=== PATIENT | male | born 1935 | race Caucasian/White ===

== ENCOUNTER → 2017-04-19 | Day surgery (SDC) | payer MEDICARE ==
[~2017-04-19] VITALS: Ht 185.4 cm; Wt 122.5 kg
[~2017-04-19] MED LIST: DILT240C45 PO; FINA5TAB9 PO; FURO-128 PO; LISI-567 PO; METF1000 PO; POTA10TA14 PO; PRAV10TA2 PO; Sodium Chloride LOK Flush 10 mL Syringe IV PRN; TAMS0.4C29 PO; WARF5TAB7 PO; fentaNYL-PF 50 mCg/mL 2 mL Inj IVPUSH PRN
[2017-04-19 11:32] VITALS: BP 137/82; PULSE 71; RESP 16; O2SAT 93
[2017-04-19] MEDS: 0.9% Sodium Chloride 1,000 ML IV PRN ×2 (11:46→12:18)
[2017-04-19 12:49] VITALS: BP 111/68; PULSE 70; RESP 14; O2SAT 92
[2017-04-19 13:02] VITALS: BP 118/67; PULSE 54; RESP 15; O2SAT 94
--- NOTE | 2017-04-19 13:36 | ENDO ---
[address] [address] ENDOSCOPY PROCEDURE PATIENT: BRANDEN DUDLEY : 1935 MR#: [id number] ADMIT: 04/19/2017 JOB ID: [id number] DATE OF SERVICE: 04/19/2017 PRIMARY PROVIDER: Elton Kearney MD. PROCEDURE: Colonoscopy with cold forceps polypectomies. INDICATIONS: An 81-year-old male with a personal history of colon polyps, returning for surveillance. EQUIPMENT: [employer]. SEDATION: 1. Versed 2 mg. 2. Fentanyl 50 mcg. COMPLICATIONS: None identified. BOWEL PREPARATION: Fair. PROCEDURE INFORMATION: After the risks and benefits were explained, written and verbal informed consent was obtained. The patient was brought into the endoscopy suite and placed into the left lateral decubitus position. Sedation was achieved using the above-stated medications with the addition of oxygen via nasal cannula. A digital rectal examination was accomplished. Mild internal hemorrhoids were appreciated. The scope was introduced into the rectum and advanced to the cecum as identified by the appendiceal orifice and ileocecal valve. The scope was slowly withdrawn to carefully examine the mucosa for any defects or lesions. Retroflexed views were accomplished in the rectum. The colon was decompressed. The scope removed from the patient who tolerated the procedure well. FINDINGS: The ileocecal valve was floppy and redundant. There appeared to be a lipomatosis cushion associated with the valve. This demonstrated classic pillowing. Photographs were taken. In the ascending colon there were two diminutive polyps removed with cold forceps. There was diverticula in both the right and left colon. Retroflexed views from within the rectum disclosed moderate internal hemorrhoids. ENDOSCOPIC DIAGNOSES: 1. Moderately engorged hemorrhoids. 2. Pandiverticulosis. 3. Colon polyps. 4. Ileocecal valve lipoma. RECOMMENDATIONS: 1. Await histopathology. 2. Typically, repeat colonoscopy would be recommended for about five years' time. That places the patient at age 86 and therefore, surveillance colonoscopy is not necessarily required. 3. Okay to restart Coumadin tomorrow night.
--- NOTE | 2017-04-20 15:53 | PATH ---
SURGICAL PATHOLOGY Attending Physician:Kira Mendenhall CASE STATUS: Signed Out PATIENT NAME: BRANDEN DUDLEY PID: [id number] : 1935 DATE COLLECTED:04/19/2017 21:52 SPECIMEN: Colon, Polyp CLINICAL HISTORY: 1). ASCENDING COLON POLYP X2 FINAL DIAGNOSIS: Ascending Colon Polyps x2, Biopsies: Portions of tubular adenoma x2; negative for high-grade dysplasia. ICD10: K63.5 GROSS DESCRIPTION: The specimen is received in one formalin filled container labeled with the patient's name, sublabeled "ascending colon polyp x2" and consists of portions of tissue which aggregate to 0.2 x 0.2 x 0.2 CM. The specimen is entirely submitted in one cassette. 04/19/2017DC ICD-9 CODES: CPT CODES: 1: 41892 Electronically Signed Out Lawanda Bailey MD [facility] [address], [place] [address] Technical component performed at [facility], [facility] [address], [place], [address]
== END | disposition home or self-care (01) ==
LOC: END 00:30
PROVIDERS: ATTEND Internal Medicine Gastroenterology
DX: Z12.11 Encounter for screening for malignant neoplasm of colon (principal); Z86.010 Personal history of colon polyps; D12.2 Benign neoplasm of ascending colon; K57.90 Diverticulosis of intestine, part unspecified, without perforation or abscess without bleeding; D17.79 Benign lipomatous neoplasm of other sites; K64.9 Unspecified hemorrhoids; I34.0 Nonrheumatic mitral (valve) insufficiency; I48.91 Unspecified atrial fibrillation; I10 Essential (primary) hypertension; E11.9 Type 2 diabetes mellitus without complications; E78.5 Hyperlipidemia, unspecified; N40.0 Benign prostatic hyperplasia without lower urinary tract symptoms; Z79.84 Long term (current) use of oral hypoglycemic drugs; Z79.01 Long term (current) use of anticoagulants
CPT/HCPCS: 45380; 88305; 99153; G0500; J2250; J3010; J7030